=== PATIENT | female | born 1995 | race African-American/Black ===

== ENCOUNTER 2024-08-26 21:37 | Emergency (ER) | payer BC, MEDICAID ==
[~2024-08-26] VITALS: Ht 162.6 cm; Wt 66.0 kg
[2024-08-26 21:40] VITALS: O2SAT 100
[2024-08-26] MEDS ORDERED: IBUP-2029 MT (22:07)
[2024-08-26 22:10] VITALS: TEMP 37; O2SAT 100
[2024-08-26 22:16] VITALS: BP 128/68; PULSE 75; RESP 18
[2024-08-26] MEDS: IBUPROFEN 600MG TABLET PO ONE (22:16)
== END 2024-08-26 22:18 | disposition home or self-care (01) ==
LOC: ER 21:37
DX: J02.9 Acute pharyngitis, unspecified (principal)
CPT/HCPCS: 99282

== ENCOUNTER 2025-01-05 10:48 | Emergency (ER) | payer BC ==
[~2025-01-05] VITALS: Ht 162.6 cm; Wt 64.8 kg
[~2025-01-05 10:48] MED LIST: IBUP-2029 MT
[2025-01-05 11:01] VITALS: O2SAT 100
[2025-01-05] MEDS: IBUPROFEN 600MG TABLET PO ONE (13:14)
[2025-01-05 13:33] VITALS: BP 130/82; PULSE 88; RESP 16; TEMP 36.7; O2SAT 100
== END 2025-01-05 13:39 | disposition home or self-care (01) ==
LOC: ER 10:48
DX: M65.4 Radial styloid tenosynovitis [de Quervain] (principal); Z79.899 Other long term (current) drug therapy
CPT/HCPCS: 99283; 73130; A6449

== ENCOUNTER 2025-02-16 13:28 | Emergency (ER) | payer BC ==
[~2025-02-16] VITALS: Ht 162.6 cm; Wt 64.0 kg
[~2025-02-16 13:28] MED LIST changes: +IBUP-1455 MT; -IBUP-2029 MT
[2025-02-16 13:38] VITALS: O2SAT 100
[2025-02-16 14:53] LABS: BASOPHILS % 0.3 % (0.0-2.0); EOSINOPHILS % 0.6 % (0.0-5.0); HEMATOCRIT. 37.2 % (36.0-48.0); HEMOGLOBIN. 12.5 g/dL (12.0-16.0); LYMPHOCYTES % 13.4 % (20.0-50.0); MEAN PLATELET VOLUME 8.3 fl (7.4-10.4); MONOCYTES % 10.1 % (2.0-8.0); NEUTROPHILS % 75.6 % (40.0-76.0); PLATELET 238 x1000/uL (130-400); RED BLOOD CELL COUNT 4.08 mill/uL (4.2-5.4); RED CELL DISTRIBUTION WIDTH 14.0 % (11.6-14.6)
[2025-02-16 15:08] LABS: CREATININE 0.8 mg/dL (0.6-1.0); UREA NITROGEN BLOOD 6 mg/dL (9-23)
[2025-02-16 15:10] LABS: ASPARTATE AMINOTRANSFERASE 23 IU/L (<34); BILIRUBIN DIRECT 0.2 mg/dL (<=3.0); BILIRUBIN TOTAL 0.4 mg/dL (0.1-1.0); PROTEIN TOTAL 7.7 g/dL (6.0-8.3)
[2025-02-16] MEDS: ONDANSETRON 4MG ODT PO ONE (15:28)
[2025-02-16] MEDS: FAMOTIDINE 20MG TABLET PO ONE (15:28)
[2025-02-16] MEDS: MAGNESIUM/ALUMINUM HYDROXIDE/SIMETHICONE 30ML UDC PO ONE (15:28)
[2025-02-16] MEDS ORDERED: FAMO-135 MT (16:14)
[2025-02-16] MEDS ORDERED: ONDA-239 PO (16:14)
[2025-02-16 16:23] VITALS: BP 127/76; PULSE 75; RESP 18; TEMP 36.7; O2SAT 100
== END 2025-02-16 16:25 | disposition home or self-care (01) ==
LOC: ER 13:38
DX: R11.2 Nausea with vomiting, unspecified (principal); Z79.899 Other long term (current) drug therapy
CPT/HCPCS: 80076; 80048; 80320; 83690; 85025; 36415; 99284; Q0162; G0480